=== PATIENT | female | born 1935 | race Two or more races ===

== ENCOUNTER → 2016-10-31 | Outpatient (CLI) | payer MEDICARE, OTHER ==
--- NOTE | 2016-10-31 14:26 | RADRPT ---
PROCEDURE: XR bilateral knees. CLINICAL INDICATION: Knee pain TECHNIQUE: AP weightbearing, PA weightbearing, lateral weightbearing and sunrise views of each kne e are available for review. COMPARISON: None available FINDINGS: Right knee: There is severe osteoarthrosis involving the right lateral tibial femoral compartment and moderate t o severe osteoarthrosis involving the medial tibial femoral compartment and the patellofemoral marietta rtment .This is associated with joint space narrowing, subchondral sclerosis and osteophytosis. Ther e is synovial osteochondromatosis with calcified loose bodies Left knee: There is severe osteoarthrosis involving the left medial tibial femoral compartment and moderate to severe osteoarthrosis involving the lateral tibial femoral compartment and the patellofemoral compar tment. This is associated with joint space narrowing, subchondral sclerosis, lateral displacement of the tibia and osteophytosis. There is synovial osteochondromatosis with calcified loose bodies. There is diffuse osteopenia. No fractures are identified. No osseous lesions are identified. The soft tissues are unremarkable. IMPRESSION: Severe osteoarthrosis involving the right lateral tibial femoral compartment and moderate to severe osteoarthrosis involving the medial tibial femoral compartment and the patellofemoral compartment Severe osteoarthrosis involving the left medial tibial femoral compartment and moderate to severe os teoarthrosis involving the lateral tibial femoral compartment and the patellofemoral compartment. Diffuse osteopenia Bilateral synovial osteochondromatosis. RPTAT: HGDB .Willem Heart MD, Date Time Electronically viewed and signed by .Willem Heart MD, on 10/31/2016 14:25 .B/
== END | disposition home or self-care (01) ==
LOC: HKI 10:38
PROVIDERS: ATTEND Orthopaedic Surgery
DX: M17.0 Bilateral primary osteoarthritis of knee (principal); M25.561 Pain in right knee; E66.9 Obesity, unspecified; M25.562 Pain in left knee; Z79.82 Long term (current) use of aspirin
CPT/HCPCS: 73564; G0463

== ENCOUNTER 2016-11-26 10:44 | Inpatient (IN) | payer MEDICARE, OTHER ==
[~2016-11-26] VITALS: Ht 154.9 cm; Wt 80.0 kg
[2016-12-02] VITALS (25 sets, daily range): BP systolic 110–149; BP diastolic 50–67; PULSE 75–90; RESP 11–20; Ht 154.9 cm; Wt 80.0 kg
[2016-12-02] MEDS ORDERED: CEFAZOLIN 1 GM INJ ONE (07:00)
[2016-12-02] MEDS: traMADol 50 MG TAB PO SCH ×2 (12:00→18:00)
[2016-12-02] MEDS ORDERED: ACET1TAB40 PO (12:47)
[2016-12-02] MEDS ORDERED: NAPR-685 PO (12:48)
[2016-12-02] MEDS ORDERED: GABA400C14 PO (12:48)
[2016-12-02] MEDS ORDERED: OMEG1CAP2 PO (12:49)
[2016-12-02] MEDS ORDERED: [UNRECOGNIZED DRUG - OTHER] PO (12:49)
[2016-12-02] MEDS ORDERED: OMEP20CA16 PO (12:49)
[2016-12-02] MEDS ORDERED: LOSA50TA6 PO (12:50)
[2016-12-02] MEDS ORDERED: ASPI81TA3 PO (12:52)
[2016-12-02] MEDS ORDERED: ERGO500037 PO (12:53)
[2016-12-02] MEDS ORDERED: GLUC100015 PO (12:54)
[2016-12-02] MEDS ORDERED: DEXAMETHASONE 4 MG/ML 1 ML INJ ONE (13:25)
[2016-12-02] MEDS ORDERED: ETOMIDATE 20 MG INJ ONE (13:25)
[2016-12-02] MEDS ORDERED: GLYCOPYRROLATE 0.4 MG INJ ONE (13:25)
[2016-12-02] MEDS ORDERED: PROPOFOL 100 ML ONE (13:25)
[2016-12-02] MEDS ORDERED: FENTAnyl 50 MCG/ML VIAL ONE (13:25)
[2016-12-02] MEDS ORDERED: NEOSTIGMINE 3 MG/3 ML SYRINGE ONE (13:25)
[2016-12-02] MEDS ORDERED: ROCURONIUM 50 MG INJ ONE (13:25)
[2016-12-02] MEDS ORDERED: MIDAZOLAM 1 MG/ML 2 ML INJ ONE (13:25)
[2016-12-02] MEDS ORDERED: ONDANSETRON 4 MG INJ ONE (13:25)
[2016-12-02] MEDS ORDERED: LIDOCAINE 100 MG SYRINGE ONE (13:25)
[2016-12-02] MEDS ORDERED: SODIUM CL BACTERIOSTATIC 30 ML INJ ONE ×2 (13:56→16:07)
[2016-12-02] MEDS ORDERED: POLYMYXIN B 500000 UNIT INJ ONE (13:57)
[2016-12-02] MEDS ORDERED: VANCOMYCIN 1 GM INJ ONE ×2 (13:57→16:07)
[2016-12-02] MEDS ORDERED: CELECOXIB 400 MG PO X1 DOSE PO ONE (14:00)
[2016-12-02] MEDS ORDERED: CEFAZOLIN 2GM/50 ML (PMX) 50 ML X1 BEFORE INCISION IVPB ONE (14:00)
[2016-12-02] MEDS ORDERED: LACTATED RINGER'S 1,000 ML IV SCH (14:00)
[2016-12-02] MEDS ORDERED: TRANEXAMIC ACID 810 MG in SOD CHLORIDE 0.9% 91.9 ML IV ONE (14:00)
[2016-12-02] MEDS ORDERED: oxyCODONE (CR) 10 MG TAB [oxyCONTIN] X1 DOSE PO ONE (14:00)
[2016-12-02] MEDS ORDERED: traMADOL 50 MG TAB X 1 DOSE PO ONE (14:00)
[2016-12-02] MEDS ORDERED: PAIN COCKTAIL-CEFUROXIME IRR ONE ×7 (14:00)
[2016-12-02] MEDS ORDERED: PREGABALIN 300 MG PO X1 PO ONE (14:00)
[2016-12-02] MEDS ORDERED: BUPIVACAINE LIPOSOME/PF 266 MG/20 ML VIAL INFIL ONE (14:30)
[2016-12-02] MEDS ORDERED: EXPAREL NOTE (BUPIVICAINE LIPOSOMAL) XX SCH (14:30)
[2016-12-02] MEDS ORDERED: POLYMYXIN/BACITRACIN 1L IRRIG ONE (14:38)
[2016-12-02] MEDS ORDERED: BACITRACIN 50000 UNITS INJ ONE (14:42)
--- NOTE | 2016-12-02 15:18 | HPN ---
Date/Time of Note Date/Time of Note DATE: 12/02/16 TIME: 15:18 Interval H&P Admission Note Pt. seen H&P reviewed: No system changes No change from H&P on 11/26/16 by STEPHEN Ocasio MD Dec 02, 2016 15:18
[2016-12-02] MEDS ORDERED: TRANEXAMIC ACID 810 MG in SOD CHLORIDE 0.9% 100 ML IVPB ONE (16:00)
[2016-12-02] MEDS ORDERED: TRIMETHOBENZAMIDE 100 MG/ML VIAL IM PRN (16:30)
[2016-12-02] MEDS ORDERED: MIDAZOLAM 1 MG/ML 2 ML INJ IV PRN (16:30)
[2016-12-02] MEDS ORDERED: HYDROmorphONE (0.2 MG/ML) 10ML SYG IV PRN ×3 (16:30)
[2016-12-02] MEDS ORDERED: MEPERIDINE 25 MG INJ IV PRN (16:30)
[2016-12-02] MEDS ORDERED: EPHEDrine SULFATE 50 MG/5 ML SYG IV PRN (16:30)
[2016-12-02] MEDS ORDERED: DIPHENHYDRAMINE 50 MG INJ IV PRN (16:30)
[2016-12-02] MEDS ORDERED: ONDANSETRON 4 MG INJ IV PRN ×2 (16:30→18:00)
[2016-12-02] MEDS ORDERED: hydrALAzine 20 MG INJ IV PRN (16:30)
[2016-12-02] MEDS ORDERED: LABETALOL HCL 20MG INJ IV PRN (16:30)
[2016-12-02] MEDS ORDERED: FENTAnyl 50 MCG/ML VIAL IV PRN ×3 (16:30)
[2016-12-02] MEDS: LACTATED RINGER'S 1,000 ML IV SCH ×2 (17:55→21:10)
[2016-12-02] MEDS ORDERED: BISACODYL 10 MG SUPP PR PRN (18:00)
[2016-12-02] MEDS: PANTOPRAZOLE (EC) 40 MG TAB PO SCH (18:00)
[2016-12-02] MEDS ORDERED: HYDROmorphONE 1 MG/ML SYG IV PRN (18:00)
[2016-12-02] MEDS ORDERED: DIPHENHYDRAMINE 25 MG CAP PO PRN (18:00)
[2016-12-02] MEDS ORDERED: MAGNESIUM HYDROXIDE 30ML CUP PO PRN (18:00)
[2016-12-02] MEDS ORDERED: NACL 0.9% 3 ML SYG IV SCH (18:00)
[2016-12-02] MEDS ORDERED: oxyCODONE 5 MG TAB PO PRN ×2 (18:00)
[2016-12-02] MEDS ORDERED: ASPIRIN (EC) 325 MG TAB PO ONE (18:00)
[2016-12-02] MEDS ORDERED: NA PHOSPHATE/BIPHOS 133 ML ENEMA PR PRN (18:00)
--- NOTE | 2016-12-02 18:05 | OPR ---
Date/Time of Note Date/Time of Note DATE: 12/02/16 TIME: 18:03 Operative Report Free Text/Dictation Dictation # [id number] Procedure Date: Dec 02, 2016 Preoperative Diagnosis Left Knee OA Postoperative Diagnosis Same Surgeon: STEPHEN KNOWLES MD promotions assistant: SVEN DÍAZ PA-C Anesthesia: general, spinal Anesthesiologist: Sammy Davis M.D. Tourniquet Time: 64 min Estimated Blood Loss: 50 - 100 ml's Specimens Bone and soft tissue Tubes/Drains Hemovac x 1 Complications: None Pt Condition Post Procedure: stable Disposition: PACU STEPHEN KNOWLES MD Dec 02, 2016 18:04
[2016-12-02] MEDS: CEFAZOLIN 2 GM/50 ML (PMX) 50 ML IVPB SCH (18:22)
--- NOTE | 2016-12-02 18:22 | PN ---
Date/Time of Note Date/Time of Note DATE: 12/02/16 TIME: 18:19 Assessment/Plan Lines/Catheters IV Catheter Type (from Nrsg): Peripheral IV Assessment/Plan Assessment/Plan Stable in PACU, s/p left TKA -continue antibiotics -pain meds as needed -ASA/SCDs for DVT prophylaxis -OOB with PT -check AM labs -monitor drain -d/c stevenson in AM XR of the left knee is pending at this time Subjective 24 Hr Interval Summary Stable in PACU. Moving all extremities. Drowsy from anesthesia but obeying commands. Exam/Review of Systems Vital Signs Vitals Vital Signs Date Time Temp Pulse Resp B/P Pulse Ox O2 Delivery O2 Flow Rate FiO2 12/02/16 18:09 84 14 130/55 99 Mask 8.0 12/02/16 17:54 98.0 Intake and Output 12/01/16 12/01/16 12/02/16 15:00 23:00 07:00 Intake Total 2000 ml Output Total 450 ml Balance 1550 ml Exam Free Text/Dictation Dressing dry Incision clean, dry, and intact without redness or drainage Thigh soft 5/5 Quadriceps, Tibialis Anterior, EHL, Gastroc, Soleus, Peroneals Normal sensation Palpable DT/PT, CR <2 sec No distal edema SVEN DÍAZ PA-C Dec 02, 2016 18:22
[2016-12-02] MEDS: ACETAMINOPHEN 1000MG/100ML IV 100 ML IVPB SCH (18:30)
[2016-12-02 18:34] LABS: HEMATOCRIT 35.1 % (37.0-47.0); HEMOGLOBIN 11.2 g/dl (12.0-16.0)
[2016-12-02 19:17] LABS: POTASSIUM 3.7 mmol/L (3.5-5.1)
[2016-12-02 19:22] LABS: CALCIUM 7.8 mg/dl (8.4-10.2); CREATININE 0.56 mg/dl (0.44-1.00)
--- NOTE | 2016-12-02 19:27 | RADRPT ---
PROCEDURE: XR Left Knee. CLINICAL INDICATION: Left knee pain. Postop. TECHNIQUE: Two views. Frontal and lateral. COMPARISON: 10/31/2016. FINDINGS: There is no fracture or dislocation. Anterior skin tadeo and surgical drains are noted. There is a total left knee arthroplasty which appears satisfactory. There is no lytic or blastic lesion. There is no joint effusion. IMPRESSION: 1. Satisfactory postoperative appearance of the left knee. RPTAT: QQ .Jorge Gomez MD, MD Date Time Electronically viewed and signed by .Jorge Gomez MD, MD on 12/02/2016 19:27 .R/
[2016-12-02] MEDS: DOCUSATE SODIUM 100 MG CAP PO SCH (21:00)
[2016-12-02] MEDS ORDERED: TRANEXAMIC ACID 800 MG in SOD CHLORIDE 0.9% 100 ML IVPB ONE (21:00)
[2016-12-02] MEDS: PREGABALIN 25 MG CAP PO SCH (21:00)
[2016-12-03] MEDS ORDERED: TRANEXAMIC ACID 800 MG in SOD CHLORIDE 0.9% 100 ML IVPB ONE ×2
[2016-12-03 00:25] VITALS: BP 110/56; PULSE 85; RESP 18
--- NOTE | 2016-12-03 00:41 | OPR ---
DATE OF OPERATION: 12/02/2016 DATE: 12/02/2016 PREOPERATIVE DIAGNOSIS: Left knee osteoarthritis. POSTOPERATIVE DIAGNOSIS: Left knee osteoarthritis. OPERATION PERFORMED: Left total knee arthroplasty. SURGEON: Stephen Hart MD DENTURE WAXER: JOSE Duran COMPONENTS USED: DePuy Attune size 5 femoral component, size 4 tibial baseplate , 10 mm polyethylene insert, and a 35 patellar button. ANESTHESIA: Spinal plus general endotracheal intubation, plus intraarticular injection. ANESTHESIOLOGIST: Dr. Davis. TOURNIQUET TIME: 64 minutes. ESTIMATED BLOOD LOSS: 50 mL. INTRAVENOUS FLUIDS: Two liters crystalloid. SPECIMENS: Bone and soft tissue. DRAINS: Hemovac x 2. COMPLICATIONS: None. DISPOSITION: The patient tolerated the procedure well and was taken to the recovery room in stable condition. INDICATIONS: The patient is a 81-year-old woman who has had progressive worsening pain in the left knee with radiographic evidence of severe osteoarthritis. She has failed nonsurgical means of treatment to control her pain, including activity modifications, pain medications, intra-articular injections and ambulatory assist devices. Despite these measures, she has had worsening pain and I felt she would benefit from a total knee arthroplasty. I felt the patient would benefit from a total knee arthroplasty. The risks, benefits, and alternatives of the procedure were explained in detail to the patient. I explained the risks of the surgery to include but not be limited to, bleeding and possible need for blood transfusion; infection; pain; stiffness; neurovascular injury with possible numbness, weakness, and/or paralysis anywhere from the knee down to the toes; fracture; instability; dislocation; wear and/or loosening of the prosthesis and possible need for future revision; blood clots; pulmonary embolism; and anesthetic complications such as heart attack, stroke, GI bleed, pneumonia, and/or . Ample time was allowed for the patient to ask questions, all of which were addressed and answered. The patient understood the risks involved and wished to proceed. Informed consent was signed prior to the procedure. PROCEDURE: The patient's left knee was initialed with a marking pen in the preoperative area to identify the correct operative site. The patient was brought to the operating room and transferred from the the orthopedic specialty hospital to the operating table where a spinal anesthetic was administered. The patient was then anesthetized and intubated. A Henry catheter was placed. A timeout was performed to confirm that the left leg was the correct operative site. The patient was given 2 g of Ancef within one hour prior to the procedure. A tourniquet was placed on the operative proximal thigh. The operative knee and lower extremity were prepped and draped in the usual sterile fashion. The operative lower extremity was elevated and exsanguinated with an Esmarch tourniquet. The proximal thigh tourniquet was inflated to 300 mmHg. The knee was flexed. A midline incision was made and carried down through the subcutaneous tissue and fat with sharp dissection. Limited medial and lateral flaps were raised. A median parapatellar approach was performed. Synovial fluid was normal in color and consistency. The patella was everted and the knee flexed. There were severe tricompartmental osteoarthritic changes noted. A medial release was performed at the joint line to the midcoronal plane. The ACL and PCL and remnants of the menisci were excised. The stepped drill was used to open up the femoral canal which was irrigated and sucked dry. The intramedullary guide alon was passed up the femur, and the distal cutting block was pinned into place for a 6 degree valgus cut, taking 10 mm of bone off distally. The oscillating saw was used to make the cut. The tibia was subluxed anteriorly. The tibial cutoff jig was placed over the center of the talus distally and over the junction of the medial and middle third of the tibial tubercle proximally. The guide was pinned into place and the oscillating saw was used to make the cut. The tibia was sized. The extension gap was checked and accommodated with a 10 mm spacer block with the knee in full extension. There was no varus or valgus instability. At this point, the femur was sized with the posterior referencing guide. Two holes were drilled in 3 degrees of external rotation. The two holes were in line with the transepicondylar axis, perpendicular to Kiet's line, and in line with the tibial cutoff jig brought up with the knee flexed 90 degrees and tensed with 2 lamina spreaders, suggesting the femoral rotation was correct. The four-in-one cutting block was pinned into place. The anterior and posterior cuts and chamfer cuts were made with the oscillating saw. The flexion gap was checked and accommodated with a 10 mm spacer block at 90 degrees. There was no varus or valgus instability, suggesting the flexion and extension gaps were now equal. The central box was cut out on the femur. The tibia was drilled and punched in proper rotation. Trial components were placed into position with a trial insert. The patella was cut from 21 mm down to 13 mm in size. Three holes were drilled and the trial button placed in position. With all the trials now in place, the knee was taken through range of motion and came to full extension as evidenced by the fact that with the foot on my abdomen and axial loading, there was no tendency for the knee to flex. The knee was able to be flexed to 125 degrees with good patellar tracking with no lateral tilt or subluxation. At this point, I was satisfied with the overall range of motion, stability, and patellar tracking. The trials were removed. The real components were opened. Two bags of cement were mixed, one with and one without premixed antibiotic. The knee was irrigated with antibiotic saline and sucked dry. Once the cement was in a doughy stage, the real components were cemented into place. The knee was held in full extension, and the patellar component was held with a patellar clamp. All excess cement was removed with curettes. As the cement was hardening, the synovial/capsular layer was infiltrated with a mixture of 150 mg of 0.5% Bupivacaine, 8 mg of Duramorph, 300 mcg of epinephrine, 30 mg of Toradol, 100 mcg of clonidine, 750 mg of cefuroxime and 86 mL of normal saline, followed by an injection of 266 mg of liposomal Bupivacaine. A Hemovac drain was placed in the deep portion of the wound and brought out the anterolateral thigh. Once the cement was completely hardened, the trial liner was removed, and the real insert was opened. The tourniquet was let down, and there was good hemostasis. The knee was then irrigated with a mixture of betadine/saline and then antibiotic saline with pulsatile lavage. The real insert was impacted into the tibia and reduced onto to the femur. The arthrotomy was closed with a few interrupted #1 Ethibond in a figure-of- eight fashion, and then closed in a watertight fashion with a running #2 Stratafix suture. Knee flexion was checked against gravity and came to 125 degrees. The subcutaneous layer was irrigated and closed with 2-0 Stratafix, and then 3-0 Vicryl and then tadeo on the skin. The wound was covered with an occlusive dressing, and secured with cast padding and a bias dressing. The drain was secured with 3-0 nylon. The sponge and needle counts were correct at the end of the case. The patient was then awakened, extubated, and taken to the recovery room in stable condition. Dictated By: STEPHEN CRUZ/ANGELO Conf#: [id number] DID#: [id number] MTDD
[2016-12-03] MEDS: ACETAMINOPHEN 1000MG/100ML IV 100 ML IVPB SCH ×3 (00:49→12:44)
[2016-12-03] MEDS: CEFAZOLIN 2 GM/50 ML (PMX) 50 ML IVPB SCH (02:29)
[2016-12-03 05:20] VITALS: BP 107/55; PULSE 66; RESP 17
[2016-12-03] MEDS: PANTOPRAZOLE (EC) 40 MG TAB PO SCH ×2 (05:29→17:56)
[2016-12-03] MEDS: traMADol 50 MG TAB PO SCH ×4 (05:30→17:57)
[2016-12-03 05:52] LABS: HEMATOCRIT 34.8 % (37.0-47.0); HEMOGLOBIN 11.3 g/dl (12.0-16.0)
[2016-12-03 06:14] LABS: POTASSIUM 4.1 mmol/L (3.5-5.1)
[2016-12-03 06:16] LABS: CREATININE 0.56 mg/dl (0.44-1.00)
[2016-12-03 06:17] LABS: CALCIUM 7.5 mg/dl (8.4-10.2)
[2016-12-03] MEDS ORDERED: GLUCOSE GEL 15 GRAM TUBE PO PRN ×2 (08:00)
[2016-12-03] MEDS ORDERED: GLUCOSE GEL 15 GRAM TUBE BUCCAL PRN (08:00)
[2016-12-03] MEDS ORDERED: GLUCAGON 1 MG INJ IM PRN (08:00)
[2016-12-03] MEDS ORDERED: DEXTROSE 50% 50 ML SYRINGE IV PRN ×2 (08:00)
--- NOTE | 2016-12-03 08:09 | CONS ---
DATE OF ADMISSION: 12/02/2016 DATE OF CONSULTATION: 12/03/2016 PHYSICIAN: Dr. Knowles Thank you very much for allowing me to evaluate this 81-year-old female who just underwent a right t otal knee arthroplasty. HISTORICAL EVENTS: As you well know, this patient has had progressive disabling pain involving her right knee, and for this elected to proceed with the above-mentioned surgery. On the orthopedic prerna or, accompanied by her daughter who interpreted for me, she is quite comfortable at present. Denanthony s cough, wheezing, shortness of breath, nausea, vomiting, abdominal or chest pain. PAST MEDICAL HISTORY: Includes 1. Depression/anxiety. 2. Hyperlipidemia. 3. Hypertension. 4. History of urine and fecal incontinence. 5. History of vertigo. 6. Borderline diabetes. 7. History of diverticulosis. SOCIAL HISTORY: She never smoked. ALLERGIES: NONE. MEDICATIONS: Include 1. Atorvastatin 20 mg per day. 2. Gabapentin 400 mg t.i.d. 3. Losartan 50 mg per day. 4. Naprosyn 375 b.i.d. 5. Omeprazole 20 per day. 6. Risacal-D 105/120 per day. 7. Tylenol with codeine p.r.n. PHYSICAL EXAMINATION: GENERAL: Comfortable appearing female in no acute distress. VITAL SIGNS: BP 122/80, pulse 70, respirations are 20. She was afebrile. EYES: Extraocular muscles were full. NOSE, MOUTH, AND THROAT: Normal. NECK: Supple. There was no jugular venous distention, thyroid enlargement or adenopathy. LUNGS: Clear. HEART: Rhythm regular. ABDOMEN: Nontender. Liver and spleen were not palpable. No masses or tenderness were noted. EXTREMITIES: The right knee was bandaged. EXTREMITIES: Revealed no edema. NEUROLOGIC: No lateralizing motor weakness. IMPRESSION: 1. Stable postop right knee. 2. History of diabetes. Sugars to be monitored and will add a.c. short-acting insulin coverage. 3. Hypertension. To continue antihypertensive therapy to be held if systolic blood pressure is les s than 120. 4. Evaluate daily for signs and symptoms of thromboembolic disease despite appropriate deep venous thrombus prophylaxis. 5. Hyperlipidemia. Statin to be continued. Dictated By: MARIA DEL ROSARIO SOTELO/NTS Conf#: [id number] DID#: [id number] CC: STEPHEN KNOWLES MD;*EndCC*
[2016-12-03 08:14] LABS: ADD UMIC NO; URINE BILIRUBIN (Dip) NEGATIVE (NEGATIVE); URINE BLOOD (Dip) NEGATIVE (NEGATIVE); URINE COLOR LT. YELLOW (YELLOW); URINE GLUCOSE (Dip) NEGATIVE (NEGATIVE); URINE KETONES (Dip) NEGATIVE (NEGATIVE); URINE LEUKOCYTE ESTERASE (Dip) NEGATIVE (NEGATIVE); URINE NITRITE (Dip) NEGATIVE (NEGATIVE); URINE TOTAL PROTEIN (Dip) NEGATIVE (NEGATIVE); URINE UROBILINOGEN (Dip) 0.2 E.U./dL (0.1-1.0)
[2016-12-03 08:22] VITALS: BP 116/58; RESP 14
--- NOTE | 2016-12-03 09:09 | PN ---
Date/Time of Note Date/Time of Note DATE: 12/03/16 TIME: 09:07 Assessment/Plan Lines/Catheters IV Catheter Type (from Nrsg): Peripheral IV Henry in Place (from Nrsg): Yes Assessment/Plan Assessment/Plan Stable POD #1, s/p left TKA -continue abx x 72 hours post-operatively -pain meds as needed -ASA/SCDs for DVT prophylaxis -OOB with PT -monitor drains -check AM labs -d/c planning. Will plan to go home upon discharge Subjective 24 Hr Interval Summary No acute overnight events. Denies significant pain. Moving all extremities. Did not start PT yesterday. Will plan to go home upon discharge. Exam/Review of Systems Vital Signs Vitals Vital Signs Date Time Temp Pulse Resp B/P Pulse Ox O2 Delivery O2 Flow Rate FiO2 12/03/16 08:22 97.9 56 14 116/58 97 12/03/16 05:20 Nasal Cannula 3.0 Intake and Output 12/02/16 12/02/16 12/03/16 15:00 23:00 07:00 Intake Total 1300 ml Output Total 85 ml 1250 ml Balance -85 ml 50 ml Exam Free Text/Dictation Hemovac: 135cc Dressing dry Incision clean, dry, and intact without redness or drainage Thigh soft 5/5 Quadriceps, Tibialis Anterior, EHL, Gastroc, Soleus, Peroneals Normal sensation Palpable DT/PT, CR <2 sec No distal edema Results Result Diagram: 12/03/1651112/03/16511 SVEN DÍAZ PA-C Dec 03, 2016 09:09
[2016-12-03] MEDS: LACTATED RINGER'S 1,000 ML IV SCH ×3 (09:13→20:51)
[2016-12-03] MEDS: ASPIRIN (EC) 325 MG TAB PO SCH ×2 (09:15→20:52)
[2016-12-03] MEDS: PREGABALIN 25 MG CAP PO SCH ×2 (09:15→20:53)
[2016-12-03] MEDS: LOSARTAN 50 MG TAB PO SCH (09:15)
[2016-12-03] MEDS: DOCUSATE SODIUM 100 MG CAP PO SCH ×2 (09:15→20:52)
[2016-12-03] MEDS: CEFAZOLIN 1 GM/50 ML (PMX) 50 ML IVPB SCH ×3 (09:21→22:40)
[2016-12-03] MEDS ORDERED: INSULIN ASPART [NOVOLOG] 3 ML PEN SC SCH (11:10)
[2016-12-03 19:00] VITALS: BP 121/58; RESP 19
[2016-12-03] MEDS: ATORVASTATIN 20 MG TAB PO SCH (20:52)
[2016-12-04] MEDS: traMADol 50 MG TAB PO SCH ×4 (00:56→18:34)
[2016-12-04] MEDS: LACTATED RINGER'S 1,000 ML IV SCH ×3 (01:55→17:55)
[2016-12-04 05:21] LABS: HEMOGLOBIN 10.2 g/dl (12.0-16.0)
[2016-12-04 05:46] LABS: POTASSIUM 3.8 mmol/L (3.5-5.1)
[2016-12-04 05:49] LABS: CALCIUM 7.9 mg/dl (8.4-10.2); CREATININE 0.62 mg/dl (0.44-1.00)
[2016-12-04] MEDS: PANTOPRAZOLE (EC) 40 MG TAB PO SCH ×2 (05:54→18:34)
[2016-12-04] MEDS: CEFAZOLIN 1 GM/50 ML (PMX) 50 ML IVPB SCH ×3 (05:56→22:02)
[2016-12-04 08:08] VITALS: BP 163/71; RESP 14
--- NOTE | 2016-12-04 08:38 | CONS ---
Date/Time of Note Date/Time of Note DATE: 12/04/16 TIME: 08:36 Assessment/Plan Assessment/Plan Additional Assessment/Plan 1. Stable postop right knee. 2. History of diabetes noted in chart, family believes this is not problematic , insulin coverage stopped 3. Hypertension, controlled 4. Hyperlipidemia, statin was continued Consultation Date/Type/Reason Admit Date/Time Dec 02, 2016 at 12:12 Initial Consult Date Detailed Summary Respiratory: No cough, No shortness of breath Cardiovascular: No chest pain Gastrointestinal: no complaints Genitourinary: no complaints Musculoskeletal: bone/joint pain (mild right knee pain) Exam/Review of Systems Vital Signs Vitals Vital Signs Date Time Temp Pulse Resp B/P Pulse Ox O2 Delivery O2 Flow Rate FiO2 12/04/16 08:08 98.3 68 14 163/71 93 12/03/16 05:20 Nasal Cannula 3.0 Intake and Output 12/03/16 12/03/16 12/04/16 15:00 23:00 07:00 Intake Total 1950 ml 1250 ml Output Total 1580 ml 440 ml Balance 370 ml 810 ml Exam Neck: No jvd Respiratory: clear to auscultation Cardiovascular: regular rate and rhythm Gastrointestinal: soft Extremities: No edema (and no calf tend) Results Result Diagram: 12/04/16 0450 12/04/16 0450 Results 24 hrs Laboratory Tests Test 12/04/16 04:50 Hemoglobin 10.2 L Hematocrit 32.0 L Sodium Level 144 Potassium Level 3.8 Chloride Level 107 Carbon Dioxide Level 27 Anion Gap 14 Blood Urea Nitrogen 13 Creatinine 0.62 Glucose Level 100 Calcium Level 7.9 L Medications Medications Current Medications Miscellaneous Information 1 ea 1 ea NOTE XX ; Start 12/02/16 at 14:30; Stop at 14:29 Lactated Ringer's (Lr) 1,000 ml @ 125 mls/hr Q8H IV Last administered on 20:51; Admin Dose 125 MLS/HR; Start 12/02/16 at 17:55 Tramadol HCl (Ultram) 50 mg Q6 PO Last administered on 12/04/16 05:54; Admin Dose 50 MG; Start 12/02/16 at 12:00; Stop 12/05/16 at 11:59 Oxycodone HCl (Roxicodone) 5 mg Q4H PRN PO PAIN LEVEL 1-3; Start 12/02/16 at 18 :00 Oxycodone HCl (Roxicodone) 10 mg Q4H PRN PO PAIN LEVEL 4-7; Start 12/02/16 at 18:00 Hydromorphone HCl (Dilaudid) 1 mg Q3H PRN IV PAIN LEVEL 8-10; Start 12/02/16 at 18:00 Ondansetron HCl (Zofran Inj) 4 mg Q6H PRN IV NAUSEA AND/OR VOMITING; Start at 18:00 Bisacodyl (Dulcolax Supp) 10 mg Q12H PRN [place] CONSTIPATION; Start 12/02/16 at 18: 00 Magnesium Hydroxide (Milk Of Mag) 30 ml BID PRN PO CONSTIPATION; Start at 18:00 Sodium Biphosphate/ Sodium Phosphate (Fleet Enema) 133 ml DAILY PRN [place] CONSTIPATION; Start 12/02/16 at 18:00 Docusate Sodium (Colace) 100 mg BID PO Last administered on 12/03/16 20:52; Admin Dose 100 MG; Start 12/02/16 at 21:00 Diphenhydramine HCl (Benadryl) 25 mg Q6H PRN PO PRURITUS; Start 12/02/16 at 18: 00 Aspirin (Ecotrin) 325 mg BID PO Last administered on 12/03/16 20:52; Admin Dose 325 MG; Start 12/03/16 at 09:00 Pantoprazole (Protonix Tab) 40 mg BID@06,18 PO Last administered on 12/04/16 05:54; Admin Dose 40 MG; Start 12/02/16 at 18:00 Pregabalin (Lyrica) 50 mg BID PO Last administered on 12/03/16 09:15; Admin Dose 50 MG; Start 12/02/16 at 21:00 Atorvastatin Calcium (Lipitor) 20 mg HS PO Last administered on 12/03/16 20:52 ; Admin Dose 20 MG; Start 12/03/16 at 21:00 Losartan Potassium (Cozaar) 50 mg DAILY PO Last administered on 12/03/16 09:15 ; Admin Dose 50 MG; Start 12/03/16 at 09:00 Miscellaneous Information 1 ea NOTE XX ; Start 12/03/16 at 08:00 Glucose (Glutose) 15 gm Q15M PRN PO DECREASED GLUCOSE; Start 12/03/16 at 08:00 Glucose (Glutose) 22.5 gm Q15M PRN PO DECREASED GLUCOSE; Start 12/03/16 at 08: 00 Dextrose (D50w Syringe) 25 ml Q15M PRN IV DECREASED GLUCOSE; Start 12/03/16 at 08:00 Dextrose (D50w Syringe) 50 ml Q15M PRN IV DECREASED GLUCOSE; Start 12/03/16 at 08:00 Glucagon (Glucagen) 1 mg Q15M PRN IM DECREASED GLUCOSE; Start 12/03/16 at 08:00 Glucose 15 gm 15 gm Q15M PRN BUCCAL DECREASED GLUCOSE; Start 12/03/16 at 08:00 Cefazolin Sodium (Ancef 1 Gm/50 ml (Pmx)) 50 ml @ 100 mls/hr Q8 IVPB Last administered on 12/04/16t 05:56; Admin Dose 100 MLS/HR; Start 12/03/16 at 09:30 ; Stop 12/05/16 at 09:29 MARIA DEL ROSARIO SUTHERLAND MD Dec 04, 2016 08:38
[2016-12-04] MEDS: PREGABALIN 25 MG CAP PO SCH ×2 (09:56→20:24)
[2016-12-04] MEDS: ASPIRIN (EC) 325 MG TAB PO SCH ×2 (09:57→20:24)
[2016-12-04] MEDS: DOCUSATE SODIUM 100 MG CAP PO SCH ×2 (09:57→20:24)
[2016-12-04] MEDS: LOSARTAN 50 MG TAB PO SCH (09:57)
--- NOTE | 2016-12-04 14:01 | PN ---
Date/Time of Note Date/Time of Note DATE: 12/04/16 TIME: 13:59 Assessment/Plan Lines/Catheters IV Catheter Type (from Nrsg): Peripheral IV Henry in Place (from Nrsg): No Assessment/Plan Assessment/Plan Stable POD #2, s/p left TKA -pain meds as needed -ASA/SCDs for DVT prophylaxis -OOB with PT -check AM labs -drain removed -dressing changed -will plan to go to SNF upon discharge Subjective 24 Hr Interval Summary Doing well. No acute overnight events. Having moderate pain with ambulation. VSS , afebrile. Will plan to go to SNF upon discharge. Exam/Review of Systems Vital Signs Vitals Vital Signs Date Time Temp Pulse Resp B/P Pulse Ox O2 Delivery O2 Flow Rate FiO2 12/04/16 08:08 98.3 68 14 163/71 93 12/03/16 05:20 Nasal Cannula 3.0 Intake and Output 12/03/16 12/03/16 12/04/16 15:00 23:00 07:00 Intake Total 1950 ml 1250 ml Output Total 1580 ml 440 ml Balance 370 ml 810 ml Exam Free Text/Dictation Hemovac: 180cc Dressing dry Incision clean, dry, and intact without redness or drainage Thigh soft 5/5 Quadriceps, Tibialis Anterior, EHL, Gastroc, Soleus, Peroneals Normal sensation Palpable DT/PT, CR <2 sec No distal edema Results Result Diagram: 12/04/1644912/04/16449 SVEN DÍAZ PA-C Dec 04, 2016 14:01
--- NOTE | 2016-12-04 14:31 | PDOCDIS ---
Discharge Instructions DIAGNOSIS Discharge Diagnosis: s/p left TKA CONDITION Patient Condition: Good HOME CARE INSTRUCTIONS: Diet Instructions: Regular ACTIVITY: Activity Restrictions: Slowly Increase Activity Rest between Activity Avoid heavy lifting Do not operate Machinery Do not operate Power Tool Avoid Heavy Housework Keep Limb Elevated Bathing Restrictions: Shower FOLLOW UP/APPOINTMENTS Appointments follow up in the office in 1 week OTHER ORDERS: Other Orders: S/P TKA Physical Therapy: Three times per week at home x 2 weeks Daily in Rehab/SNF WB STATUS: WBAT 1. Strengthening exercises for both upper and un-operated lower extremities. 2. Gait training with front wheeled walker 3. Active range of motion exercises to operative knee. 4. When not working on knee range of motion exercises, distal towel roll under operative ankle/distal calf to promote full extension. 5. DO NOT PUT ANYTHING BEHIND OPERATIVE KNEE!!! 6. Quadriceps and hamstring strengthening. 7. May switch to cane in contra lateral hand 6 weeks after surgery. 8. Physical Therapy can open case if nursing is not available. 9. Use Ice Machine as instructed from date of surgery while at rest 3X/day. 10. Patient requires mobile SCDs to reduce risk of developing DVT following TKA. Patient will use the mobile SCDs for 30 days postoperatively. Bathing assistance by home health aide twice weekly if Medicare patient. Occupational Therapy: Evaluation for assistive devices and ADL training. Wound Care: Keep incision dry & covered with Tegaderm until first visit with Dr. Hart Anticoagulation Orders: Enteric Coated Aspirin 325 mg po bid x 6 weeks from date of surgery Follow-up:Call for an appointment with Dr. Hart in 1 week after discharged from hospital at DME Orders: WOO, 3-in-1 Commode, Polar ice machine, Mobile SCDs SVEN DÍAZ PA-C Dec 04, 2016 14:31
[2016-12-04] MEDS ORDERED: ASPI325T32 PO (14:32)
[2016-12-04] MEDS ORDERED: TRAM50TA2 PO (14:32)
[2016-12-04] MEDS ORDERED: HYDR-905 PO (14:32)
[2016-12-04] MEDS: ATORVASTATIN 20 MG TAB PO SCH (20:24)
[2016-12-04 22:23] VITALS: BP 184/80; RESP 20
[2016-12-04 23:00] VITALS: BP 160/70; PULSE 80
[2016-12-05] VITALS: BP 144/65; PULSE 88; RESP 18
[2016-12-05] MEDS: LACTATED RINGER'S 1,000 ML IV SCH (01:55)
[2016-12-05 05:12] LABS: POTASSIUM 3.6 mmol/L (3.5-5.1)
[2016-12-05 05:15] LABS: CREATININE 0.6 mg/dl (0.44-1.00)
[2016-12-05 05:16] LABS: CALCIUM 7.5 mg/dl (8.4-10.2)
[2016-12-05 05:22] LABS: HEMOGLOBIN 10.5 g/dl (12.0-16.0)
[2016-12-05] MEDS: traMADol 50 MG TAB PO SCH ×2 (06:00)
[2016-12-05] MEDS: PANTOPRAZOLE (EC) 40 MG TAB PO SCH ×2 (06:45→18:51)
[2016-12-05] MEDS: CEFAZOLIN 1 GM/50 ML (PMX) 50 ML IVPB SCH (06:46)
[2016-12-05 07:29] VITALS: BP 149/77; RESP 18
--- NOTE | 2016-12-05 08:58 | CONS ---
Date/Time of Note Date/Time of Note DATE: 12/05/16 TIME: 08:55 Assessment/Plan Assessment/Plan Chief Complaint/Hosp Course #1 she is now 3 days postop left total knee replacement. She has been confused at times and I think this is related to her pain medication. I am going to DC the tramadol for now and cut back in the dose of oxycodone. I did discuss this with the patient's daughter and she is in agreement. #2 episodes of confusion due to pain medication. #3 hypertension #4 type 2 diabetes mellitus. Problems: Consultation Date/Type/Reason Admit Date/Time Dec 02, 2016 at 12:12 Initial Consult Date 24 HR Interval Summary Free Text/Dictation This patient is [place]-speaking. Her daughter is in the room with her. The daughter says that the patient became confused last night and she received one of her pain medications. The patient is awake and alert at this time. Exam/Review of Systems Vital Signs Vitals Vital Signs Date Time Temp Pulse Resp B/P Pulse Ox O2 Delivery O2 Flow Rate FiO2 12/05/16 07:29 99.0 91 18 149/77 92 12/05/16 00:00 Nasal Cannula 2.0 Intake and Output 12/04/16 12/04/16 12/05/16 15:00 23:00 07:00 Intake Total 920 ml 700 ml Output Total 800 ml Balance 920 ml -100 ml Exam Constitutional: alert, oriented Respiratory: clear to auscultation, normal air movement Cardiovascular: regular rate and rhythm Gastrointestinal: non-tender, soft Musculoskeletal: nl extremities to inspection Results Result Diagram: 12/05/16 0430 12/05/16 0430 Results 24 hrs Laboratory Tests Test 12/05/16 04:30 Hemoglobin 10.5 L Hematocrit 32.0 L Sodium Level 139 Potassium Level 3.6 Chloride Level 101 Carbon Dioxide Level 30 Anion Gap 12 Blood Urea Nitrogen 10 Creatinine 0.60 Glucose Level 103 Calcium Level 7.5 L Medications Medications Current Medications Miscellaneous Information 1 ea 1 ea NOTE XX ; Start 12/02/16 at 14:30; Stop at 14:29 Lactated Ringer's (Lr) 1,000 ml @ 125 mls/hr Q8H IV Last administered on t 20:51; Admin Dose 125 MLS/HR; Start 12/02/16 at 17:55 Tramadol HCl (Ultram) 50 mg Q6 PO Last administered on 12/04/16 18:34; Admin Dose 50 MG; Start 12/02/16 at 12:00; Stop 12/05/16 at 11:59 Oxycodone HCl (Roxicodone) 5 mg Q4H PRN PO PAIN LEVEL 1-3; Start 12/02/16 at 18 :00 Oxycodone HCl (Roxicodone) 10 mg Q4H PRN PO PAIN LEVEL 4-7 Last administered on 12/04/16 22:46; Admin Dose 10 MG; Start 12/02/16 at 18:00 Hydromorphone HCl (Dilaudid) 1 mg Q3H PRN IV PAIN LEVEL 8-10; Start 12/02/16 at 18:00 Ondansetron HCl (Zofran Inj) 4 mg Q6H PRN IV NAUSEA AND/OR VOMITING; Start at 18:00 Bisacodyl (Dulcolax Supp) 10 mg Q12H PRN [place] CONSTIPATION; Start 12/02/16 at 18: 00 Magnesium Hydroxide (Milk Of Mag) 30 ml BID PRN PO CONSTIPATION; Start at 18:00 Sodium Biphosphate/ Sodium Phosphate (Fleet Enema) 133 ml DAILY PRN [place] CONSTIPATION; Start 12/02/16 at 18:00 Docusate Sodium (Colace) 100 mg BID PO Last administered on 12/04/16 20:24; Admin Dose 100 MG; Start 12/02/16 at 21:00 Diphenhydramine HCl (Benadryl) 25 mg Q6H PRN PO PRURITUS; Start 12/02/16 at 18: 00 Aspirin (Ecotrin) 325 mg BID PO Last administered on 12/04/16 20:24; Admin Dose 325 MG; Start 12/03/16 at 09:00 Pantoprazole (Protonix Tab) 40 mg BID@,18 PO Last administered on 12/05/16 06:45; Admin Dose 40 MG; Start 12/02/16 at 18:00 Pregabalin (Lyrica) 50 mg BID PO Last administered on 12/04/16 20:24; Admin Dose 50 MG; Start 12/02/16 at 21:00 Atorvastatin Calcium (Lipitor) 20 mg HS PO Last administered on 12/04/16 20:24 ; Admin Dose 20 MG; Start 12/03/16 at 21:00 Losartan Potassium (Cozaar) 50 mg DAILY PO Last administered on 12/04/16 09:57 ; Admin Dose 50 MG; Start 12/03/16 at 09:00 Miscellaneous Information 1 ea NOTE XX ; Start 12/03/16 at 08:00 Glucose (Glutose) 15 gm Q15M PRN PO DECREASED GLUCOSE; Start 12/03/16 at 08:00 Glucose (Glutose) 22.5 gm Q15M PRN PO DECREASED GLUCOSE; Start 12/03/16 at 08: 00 Dextrose (D50w Syringe) 25 ml Q15M PRN IV DECREASED GLUCOSE; Start 12/03/16 at 08:00 Dextrose (D50w Syringe) 50 ml Q15M PRN IV DECREASED GLUCOSE; Start 12/03/16 at 08:00 Glucagon (Glucagen) 1 mg Q15M PRN IM DECREASED GLUCOSE; Start 12/03/16 at 08:00 Glucose 15 gm 15 gm Q15M PRN BUCCAL DECREASED GLUCOSE; Start 12/03/16 at 08:00 Cefazolin Sodium (Ancef 1 Gm/50 ml (Pmx)) 50 ml @ 100 mls/hr Q8 IVPB Last administered on 12/05/16 06:46; Admin Dose 100 MLS/HR; Start 12/03/16 at 09:30 ; Stop 12/05/16 at 09:29 RENE JOHANSEN MD Dec 05, 2016 08:57
[2016-12-05] MEDS: PREGABALIN 25 MG CAP PO SCH ×2 (09:38→20:47)
[2016-12-05] MEDS: ASPIRIN (EC) 325 MG TAB PO SCH ×2 (09:38→20:47)
[2016-12-05] MEDS: DOCUSATE SODIUM 100 MG CAP PO SCH ×2 (09:38→20:47)
[2016-12-05] MEDS: LOSARTAN 50 MG TAB PO SCH (09:38)
--- NOTE | 2016-12-05 10:40 | PN ---
Date/Time of Note Date/Time of Note DATE: 12/05/16 TIME: 10:39 Assessment/Plan Lines/Catheters IV Catheter Type (from Nrsg): Peripheral IV Henry in Place (from Nrsg): No Assessment/Plan Assessment/Plan Stable POD #3, s/p left TKA -d/c oxycodone and switch to [place] 7.5mg and tramadol for better pain control -ASA/SCDs for DVT prophylaxis -OOB with PT as tolerated -dressing changed -check AM labs -d/c planning. Will go to SNF upon discharge depending on pain control Subjective 24 Hr Interval Summary No acute overnight events. Moderate pain overnight. Denies any f/c. VSS, afebrile. Would like to go to SNF closer to their house upon discharge. Exam/Review of Systems Vital Signs Vitals Vital Signs Date Time Temp Pulse Resp B/P Pulse Ox O2 Delivery O2 Flow Rate FiO2 12/05/16 07:29 99.0 91 18 149/77 92 12/05/16 00:00 Nasal Cannula 2.0 Intake and Output 12/04/16 12/04/16 12/05/16 14:59 22:59 06:59 Intake Total 920 ml 700 ml Output Total 800 ml Balance 920 ml -100 ml Exam Free Text/Dictation Dressing dry Incision clean, dry, and intact without redness or drainage Thigh soft 5/5 Quadriceps, Tibialis Anterior, EHL, Gastroc, Soleus, Peroneals Normal sensation Palpable DT/PT, CR <2 sec No distal edema Results Result Diagram: 12/05/1642912/05/16429 SVEN DÍAZ PA-C Dec 05, 2016 10:40
[2016-12-05] MEDS ORDERED: HYDROCODONE/APAP (7.5/325) TAB PO PRN (11:00)
[2016-12-05 20:00] VITALS: BP_SYST 114; BP_SYST 155; BP_DIAS 56; BP_DIAS 83; PULSE 85; PULSE 97; RESP 18
[2016-12-05] MEDS: ATORVASTATIN 20 MG TAB PO SCH (20:47)
[2016-12-06 05:04] LABS: HEMATOCRIT 29.7 % (37.0-47.0); HEMOGLOBIN 9.8 g/dl (12.0-16.0)
[2016-12-06 05:18] LABS: POTASSIUM 3.5 mmol/L (3.5-5.1)
[2016-12-06 05:21] LABS: CREATININE 0.77 mg/dl (0.44-1.00)
[2016-12-06 05:22] LABS: CALCIUM 7.7 mg/dl (8.4-10.2)
[2016-12-06] MEDS: PANTOPRAZOLE (EC) 40 MG TAB PO SCH (06:24)
[2016-12-06 07:00] VITALS: BP 110/64; RESP 20
[2016-12-06] MEDS: ASPIRIN (EC) 325 MG TAB PO SCH (08:47)
[2016-12-06] MEDS: DOCUSATE SODIUM 100 MG CAP PO SCH (08:47)
[2016-12-06] MEDS: LOSARTAN 50 MG TAB PO SCH (08:48)
[2016-12-06] MEDS: PREGABALIN 25 MG CAP PO SCH (09:00)
--- NOTE | 2016-12-06 10:30 | PN ---
Date/Time of Note Date/Time of Note DATE: 12/06/16 TIME: 10:29 Assessment/Plan Lines/Catheters IV Catheter Type (from Nrsg): Saline Lock Henry in Place (from Nrsg): No Assessment/Plan Assessment/Plan POD # 4. Stable. -D/C to [facility] today -OOB with PT -Pain meds -ASA/SCDs -F/u with me on 12/12/16 Subjective 24 Hr Interval Summary Resting comfortably. Ready to go to [facility] today. Exam/Review of Systems Vital Signs Vitals Vital Signs Date Time Temp Pulse Resp B/P Pulse Ox O2 Delivery O2 Flow Rate FiO2 12/06/16 07:00 98.0 77 20 110/64 95 12/05/16 20:00 Nasal Cannula 12/05/16 00:00 2.0 Intake and Output 12/05/16 12/05/16 12/06/16 15:00 23:00 07:00 Intake Total 50 ml 1200 ml 600 ml Balance 50 ml 1200 ml 600 ml Exam Free Text/Dictation Dressing dry Incision clean, dry, and intact without redness or drainage 5/5 Tibialis Anterior, EHL, Gastroc Soleus, Peroneals Normal sensation Palpable DP/PT, CR < 2 Sec No distal edema Results Result Diagram: 12/06/16 0434 12/06/16 0434 STEPHEN KNOWLES MD Dec 06, 2016 10:30
--- NOTE | 2016-12-06 10:52 | DS ---
DATE OF ADMISSION: 12/02/2016 DATE OF DISCHARGE: 12/06/2016 ADMITTING DIAGNOSIS: Left knee osteoarthritis. DISCHARGE DIAGNOSIS: Status post left total knee arthroplasty. HOSPITAL COURSE: The patient was admitted, taken to the operating room where she underwent a left t otal knee arthroplasty. There were no complications. She was taken to the recovery room in stable condition. She was given routine perioperative intravenous antibiotics. Pain was controlled with o ral pain medications. She was started on enteric-coated aspirin 325 mg twice daily for DVT prophyla xis. The drain was removed on postoperative day 1 and the incision inspected and noted to be clean, dry and intact with no redness or drainage. She did well with physical therapy, ambulating up and down the halls. She remained afebrile, hemodynamically stable and neurovascularly intact. By posto perative day 4, she was doing well and ready to be discharged to a detention facility. DISCHARGE CONDITION: Good. DISPOSITION: [facility]. DISCHARGE MEDICATIONS: She should continue with: 1. Win[place]rede 1 to 2 tabs p.o. q.4 to 6 hours p.r.n. pain. 2. Enteric-coated aspirin 325 mg twice daily for DVT prophylaxis. For the remainder of the medications, please refer to the medication reconciliation form. DISCHARGE INSTRUCTIONS: She should keep the incision dry. She will continue with physical therapy for gait training and use of a front-wheel walker. FOLLOWUP: She will follow up in the office on 12/12/2016. Dictated By: STEPHEN CRUZ/NTS Conf#: [id number] DID#: [id number]
--- NOTE | 2016-12-06 11:16 | CONS ---
Date/Time of Note Date/Time of Note DATE: 12/06/16 TIME: 11:11 Consult Date/Type/Reason Admit Date/Time Dec 02, 2016 at 12:12 Initial Consult Date 12/02/2016 Type of Consultation: Medicine Reason for Consultation HTN, HLD, encephalopathy Ordering Provider: STEPHEN KNOWLES MD Subjective Patient doing well this am. Delirium resolved. Currently alert and oriented to person, place, time, and situation. Denies fevers, chills, nausea, vomiting, diarrhea, constipation, chest pain, sob, cough. Excited to get discharged to rehab. Objective Vital Signs Date Time Temp Pulse Resp B/P Pulse Ox O2 Delivery O2 Flow Rate FiO2 12/06/16 07:00 98.0 77 20 110/64 95 12/05/16 20:00 Nasal Cannula 12/05/16 00:00 2.0 Intake and Output 12/05/16 12/05/16 12/06/16 15:00 23:00 07:00 Intake Total 50 ml 1200 ml 600 ml Balance 50 ml 1200 ml 600 ml Exam GEN-NAD HEENT-MMM, no scleral icterus CV-rrr, nml s1/s2, no m/r/g Pulm-CTAB, no w/r/r Abd-soft, nt, nd Ext-no c/c/e pysch- A&O x 4 Results/Medications Result Diagram: 12/06/16 0434 12/06/16 0434 Results 24 hrs Laboratory Tests Test 12/06/16 04:34 Hemoglobin 9.8 L Hematocrit 29.7 L Sodium Level 141 Potassium Level 3.5 Chloride Level 105 Carbon Dioxide Level 31 Anion Gap 9 Blood Urea Nitrogen 11 Creatinine 0.77 Glucose Level 115 Calcium Level 7.7 L Medications Current Medications Miscellaneous Information 1 ea NOTE XX ; Start 12/02/16 at 14:30; Stop 12/06/16 at 14:29 Hydromorphone HCl (Dilaudid) 1 mg Q3H PRN IV PAIN LEVEL 8-10; Start 12/02/16 at 18:00 Ondansetron HCl (Zofran Inj) 4 mg Q6H PRN IV NAUSEA AND/OR VOMITING; Start at 18:00 Bisacodyl (Dulcolax Supp) 10 mg Q12H PRN [place] CONSTIPATION; Start 12/02/16 at 18: 00 Magnesium Hydroxide (Milk Of Mag) 30 ml BID PRN PO CONSTIPATION; Start at 18:00 Sodium Biphosphate/ Sodium Phosphate (Fleet Enema) 133 ml DAILY PRN [place] CONSTIPATION; Start 12/02/16 at 18:00 Docusate Sodium (Colace) 100 mg BID PO Last administered on 12/06/16 08:47; Admin Dose 100 MG; Start 12/02/16 at 21:00 Diphenhydramine HCl (Benadryl) 25 mg Q6H PRN PO PRURITUS; Start 12/02/16 at 18: 00 Aspirin (Ecotrin) 325 mg BID PO Last administered on 12/06/16 08:47; Admin Dose 325 MG; Start 12/03/16 at 09:00 Pantoprazole (Protonix Tab) 40 mg BID@06,18 PO Last administered on 12/06/16 06:24; Admin Dose 40 MG; Start 12/02/16 at 18:00 Pregabalin (Lyrica) 50 mg BID PO Last administered on 12/05/16 20:47; Admin Dose 25 MG; Start 12/02/16 at 21:00 Atorvastatin Calcium (Lipitor) 20 mg HS PO Last administered on 12/05/16 20:47 ; Admin Dose 20 MG; Start 12/03/16 at 21:00 Losartan Potassium (Cozaar) 50 mg DAILY PO Last administered on 12/05/16 09:38 ; Admin Dose 50 MG; Start 12/03/16 at 09:00 Miscellaneous Information 1 ea NOTE XX ; Start 12/03/16 at 08:00 Glucose (Glutose) 15 gm Q15M PRN PO DECREASED GLUCOSE; Start 12/03/16 at 08:00 Glucose (Glutose) 22.5 gm Q15M PRN PO DECREASED GLUCOSE; Start 12/03/16 at 08: 00 Dextrose (D50w Syringe) 25 ml Q15M PRN IV DECREASED GLUCOSE; Start 12/03/16 at 08:00 Dextrose (D50w Syringe) 50 ml Q15M PRN IV DECREASED GLUCOSE; Start 12/03/16 at 08:00 Glucagon (Glucagen) 1 mg Q15M PRN IM DECREASED GLUCOSE; Start 12/03/16 at 08:00 Glucose (Glutose) 15 gm Q15M PRN BUCCAL DECREASED GLUCOSE; Start 12/03/16 at 08 :00 Acetaminophen/ Hydrocodone Bitart ([place] (7.5-325)) 1 tab Q4H PRN PO PAIN LEVEL 1-5; Start 12/05/16 at 11:00 Assessment/Plan Chief Complaint/Hosp Course 81 y/o female pmh HTN, HLD s/p L TKA 12/02 w/ h/c c/b delirium likely 2/2 sedating meds. Problems: Additional Assessment/Plan Ortho #s/p L TKA -ASA/SCD for DVT ppx -cautious pain management -PT Psych #encephalopathy-likely delirium in setting of sedating meds. Resolved -continue to reorient prn -avoid sleeping during day -minimize sedating meds. -will dc phan CV #HTN -losartan #HLD -atorva 20 Dispo- medically cleared for discharged to sNF/Rehab today. MAURILIO MULLER MD Dec 06, 2016 11:16
[2016-12-06 16:11] VITALS: BP 112/58; PULSE 74; RESP 17
== END 2016-12-06 16:40 | DRG 469 ==
LOC: REC 12-02 12:12 → MS1 12-02 19:50
PROVIDERS: ADMIT Orthopaedic Surgery; ATTEND Orthopaedic Surgery
PROC: 0SRD0J9 Replacement of Left Knee Joint with Synthetic Substitute, Cemented, Open Approach (ICD-10-PCS; principal; 2016-12-02 16:00)
DX: M17.12 Unilateral primary osteoarthritis, left knee (principal); G93.41 Metabolic encephalopathy; E11.9 Type 2 diabetes mellitus without complications; I10 Essential (primary) hypertension; E78.5 Hyperlipidemia, unspecified; T40.2X5A Adverse effect of other opioids, initial encounter; Y92.230 Patient room in hospital as the place of occurrence of the external cause
CPT/HCPCS: 73560; 80048; 81003; 85014; 85018; 86850; 86900; 86901; 86920; 87081; 87086; 88304; 88311; 97110; 97116; 97162; 97530; Z7610; C1776; C9290; J0131; J0171; J0690; J0697; J0735; J1100; J1815; J1885; J2001; J2250; J2274; J2405; J2710; J3010; J3370; J7120

== ENCOUNTER → 2016-11-26 | Outpatient (CLI) | payer MEDICARE, OTHER ==
--- NOTE | 2016-11-26 17:55 | RADRPT ---
PROCEDURE: Limited x-ray of both lower extremities. CLINICAL INDICATION: Bilateral leg pain. TECHNIQUE: Single frontal view of both lower extremities was obtained from the hips to the calves. COMPARISON: None. FINDINGS: There are mild degenerative changes of the hips. There are severe degenerative changes of both knee s with associated deformity. There is valgus deformity of the right knee and varus deformity of the left knee. IMPRESSION: 1. Mild degenerative changes of the hips. 2. Severe degenerative changes of both knees with valgus deformity of the right knee and varus defo rmity of the left knee. RPTAT: QQ .Jorge Gomez MD, MD Date Time Electronically viewed and signed by .Jorge Gomez MD, MD on 11/26/2016 17:55 .R/
== END | disposition home or self-care (01) ==
LOC: HKI 11:17
PROVIDERS: ATTEND Orthopaedic Surgery
DX: Z01.818 Encounter for other preprocedural examination (principal); M17.0 Bilateral primary osteoarthritis of knee; M25.562 Pain in left knee
CPT/HCPCS: 77073; G0463

== ENCOUNTER → 2016-12-12 | Outpatient (CLI) | payer MEDICARE, OTHER ==
[~2016-12-12] MED LIST: ASPI325T32 PO; ERGO500037 PO; GABA400C14 PO; HYDR-905 PO; LOSA50TA6 PO; OMEG1CAP2 PO; OMEP20CA16 PO; TRAM50TA2 PO
--- NOTE | 2016-12-12 11:08 | RADRPT ---
PROCEDURE: XR right knee. CLINICAL INDICATION: Knee pain. TECHNIQUE: AP and lateral views are available for review. COMPARISON: 12/02/2016 FINDINGS: There is a total knee replacement. There is no evidence of loosening of the prosthesis. There is no evidence of hardware failure. The osseous structures are normal in mineralization, architecture and alignment No acute fracture or dislocation is seen.No osseous lesions are identified. The soft tiss ues are unremarkable . anterior skin tadeo are in place. IMPRESSION: Unremarkable total knee replacement. RPTAT: HGDB .Willem Heart MD, MD Date Time Electronically viewed and signed by .Willem Heart MD, MD on 12/12/2016 11:07 .B/
--- NOTE | 2016-12-12 13:29 | HKNOTE ---
DATE OF SERVICE: 12/12/2016 INTERVAL HISTORY: The patient presents today for her first postoperative evaluation. She is 10 days status post left total knee arthroplasty. She is at an outside SNF. She, per her daughter, has not been ambulating at all at the SNF. They have been keeping her mostly in a wheelchair at all times. As a result, she is having some increased left knee pain. She has had minimal ambulation with a front-wheeled walker. She has been compliant with the pain medicine and aspirin for DVT prophylaxis. She denies any fevers or chills. She presents today for her first postoperative evaluation. PHYSICAL EXAMINATION: GENERAL: Today, she is alert and oriented x4 and in no acute distress. She is in a wheelchair, but is able to ambulate with a front-wheeled walker. SKIN: The incision demonstrates to be clean, dry, and intact. There is some mild ecchymosis and soft tissue swelling. There is no erythema or warmth noted. Varus and valgus forces are stable. Range of motion is 0 to 90 degrees. Homans sign is negative otherwise. Compartments are soft. She is neurovascularly intact distally. IMAGING: X-rays of the left knee were obtained today and reviewed by me. They demonstrate postsurgical changes with good anatomic alignment of the left total knee. There is no fracture or dislocation identified. ASSESSMENT: Ten days status post left total knee arthroplasty. PLAN: The tadeo were removed today and Steri-Strips were applied. She is to continue aspirin twice daily for DVT prophylaxis. She is here continue pain medication as needed. I did encourage her to ambulate more with a front- wheeled walker with therapy at her alf facility. We will see her back in 4 weeks for repeat evaluation. Dictated By: SVEN GARCIA for STEPHEN ROSA/ANGELO Conf#: [id number] DID#: [id number] MAHIN
== END | disposition home or self-care (01) ==
LOC: HKI 09:24
PROVIDERS: ATTEND Orthopaedic Surgery
DX: Z47.1 Aftercare following joint replacement surgery (principal); Z96.652 Presence of left artificial knee joint

== ENCOUNTER → 2017-01-09 | Outpatient (CLI) | payer MEDICARE, OTHER | END | disposition home or self-care (01) | LOC: HKI 09:02 | PROVIDERS: ATTEND Orthopaedic Surgery | DX: Z47.1 Aftercare following joint replacement surgery (principal); M17.12 Unilateral primary osteoarthritis, left knee; Z96.652 Presence of left artificial knee joint; I10 Essential (primary) hypertension ==

== ENCOUNTER → 2017-03-11 | Outpatient (CLI) | payer MEDICARE, OTHER ==
--- NOTE | 2017-03-11 15:11 | RADRPT ---
PROCEDURE: Left knee radiographs. CLINICAL INDICATION: Left knee pain. Postop. TECHNIQUE: Three views. Weight bearing. Frontal, lateral, and patellar view. COMPARISON: 12/12/2016. FINDINGS: There is no fracture or dislocation. Anterior skin tadeo have been removed. There is a total left knee arthroplasty which appears satisfactory. There is no lytic or blastic lesion. There is no joint effusion. IMPRESSION: 1. Satisfactory postoperative appearance of the left knee. RPTAT: QQ .Jorge Gomez MD, MD Date Time Electronically viewed and signed by .Jorge Gomez MD, on 03/11/2017 15:11 .R/
== END | disposition home or self-care (01) ==
LOC: HKI 10:57
PROVIDERS: ATTEND Orthopaedic Surgery
DX: Z47.1 Aftercare following joint replacement surgery (principal); Z96.652 Presence of left artificial knee joint; M17.12 Unilateral primary osteoarthritis, left knee; M17.11 Unilateral primary osteoarthritis, right knee; I10 Essential (primary) hypertension; E78.00 Pure hypercholesterolemia, unspecified; E66.9 Obesity, unspecified
CPT/HCPCS: G0463